=== PATIENT | male | born 1985 | race Caucasian/White ===

== ENCOUNTER 2020-08-10 15:13 | Emergency (ER) | payer MEDICAID, SELFPAY ==
[2020-08-10 16:21] VITALS: BP 132/76; PULSE 123; RESP 22; TEMP 36.9; O2SAT 94; BMI 31.5
--- NOTE | 2020-08-10 16:22 | ED.GENADULT ---
HPI - General Adult General Chief complaint: ETOH/Substance Use <Surekha Shabazz NP - Last Filed: 08/10/20 16:26> Stated complaint: detox <Surekha Shabazz NP - Last Filed: 08/10/20 16:26> Time Seen by Provider: 08/10/20 15:15 <Surekha Shabazz NP - Last Filed: 08/10/20 16:26> Source: RN notes reviewed <Ralf Mariscal MD - Last Filed: 08/10/20 17:52> Mode of arrival: ambulatory <Ralf Mariscal MD - Last Filed: 08/10/20 17:52> Limitations: other (Confused, agitated) <Ralf Mariscal MD - Last Filed: 08/10/20 17:52> History of Present Illness HPI narrative: 34-year-old male brought to the emergency department by his stepfather for evaluation of confusion and hallucination. According to triage note, the patient was evaluated 3-4 days prior at [facility] for acute alcohol intoxication, head trauma for evaluation to get into a detox bed . According to his mother, his alcohol level at that time was 412. He was medically cleared and discharged home . His mother took him home to live with her and care for the patient till a detox bed was available at [facility]. The patient was doing well until early this morning when he left the house and the mother believes he drank at least to handle of liquor. The patient is now confused and agitated. The family therefore brought into the emergency department for evaluation. His mother states that the patient drinks alcohol on a regular basis and has been admitted to multiple detox and has had some success at being sober in the past. He has been drinking since he was 12 years old. He has used heroin in the past and his overdose requiring Narcan to revive him. On examination, the patient is somnolent, he seems to be mumbling and talking to himself, he was oriented to person only but did not answer questions as to why he is here and what is going on with him. The patient was tachycardic and his O2 saturation did drop to 88% when he was somnolent therefore he was placed on oxygen via nasal cannula with improvement of his O2 saturations. <Ralf Mariscal MD - Last Filed: 08/10/20 17:52> Related Data Allergies/adverse reactions: Allergies Allergy/AdvReac Type Severity Reaction Status Date / Time No Known Allergies Allergy Verified 08/10/20 16:25 <Surekha Shabazz NP - Last Filed: 08/10/20 16:26> Review of Systems Review of Systems: Yes Unobtainable due to mental condition (Confused) <Ralf Mariscal MD - Last Filed: 08/10/20 17:52> Neurologic: Reports confusion <Ralf Mariscal MD - Last Filed: 08/10/20 17:52> Psychiatric: Psychiatric: Reports confusion <Ralf Mariscal MD - Last Filed: 08/10/20 17:52> [facility] Past Medical History [facility] Narrative: The patient has a history of hypertension, asthma and depression. Has a history of alcohol use disorder and has used heroin occasionally. He does smoke cigarettes on a regular basis. <Ralf Mariscal MD - Last Filed: 08/10/20 17:52> Social History Social History: Social History Advance Directives: No Advance Directives Information Provided: No <Surekha Shabazz NP - Last Filed: 08/10/20 16:26> Physical Exam Vital Signs: Vital Signs: Last Vital Signs Temp 98.5 F 08/10/20 16:21 Pulse 123 H 08/10/20 16:21 Resp 22 H 08/10/20 16:21 BP 132/76 08/10/20 16:21 Pulse Ox 94 08/10/20 16:21 Body Mass Index 31.5 <Surekha Shabazz NP - Last Filed: 08/10/20 16:26> Vital Signs: Last Vital Signs Temp 98.5 F 08/10/20 16:21 Pulse 123 H 08/10/20 16:21 Resp 22 H 08/10/20 16:21 BP 132/76 08/10/20 16:21 Pulse Ox 94 08/10/20 16:21 Body Mass Index 31.5 <Ralf Mariscal MD - Last Filed: 08/10/20 17:52> Const: General: well developed and confusion (Patient is mumbling, talking to himself, was able to tell me his name) <Ralf Mariscal MD - Last Filed: 08/10/20 17:52> Orientation/consciousness: oriented to person and confusion <Ralf Mariscal MD - Last Filed: 08/10/20 17:52> Limitations: altered mental status <Ralf Mariscal MD - Last Filed: 08/10/20 17:52> HENMT: Head: Yes normal to inspection, Yes normocephalic and Yes atraumatic <Ralf Mariscal MD - Last Filed: 08/10/20 17:52> Ears: external ears normal <MD Georgi Cantrell Last Filed: 08/10/20 17:52> General nose exam: Normal external nose present <MD Georgi Cantrell Last Filed: 08/10/20 17:52> Face and sinus: Yes other (Right periorbital ecchymosis) <MD Georgi Cantrell Last Filed: 08/10/20 17:52> Mouth: Normal oral and palatal mucosa present <MD Georgi Cantrell Last Filed: 08/10/20 17:52> Throat: Yes posterior oropharynx normal <MD Georgi Cantrell Last Filed: 08/10/20 17:52> Eyes: Periorbital: periorbital findings abnormal (Right periorbital ecchymosis) <Ralf Mariscal MD - Last Filed: 08/10/20 17:52> Eyelids: Yes eyelids normal <MD Georgi Cantrell Last Filed: 08/10/20 17:52> Conjunctivae: conjunctivae normal <MD Georgi Cantrell Last Filed: 08/10/20 17:52> Sclerae: sclerae normal <MD Georgi Cantrell Last Filed: 08/10/20 17:52> Corneas: corneas normal <MD Georgi Cantrell Last Filed: 08/10/20 17:52> Pupils: Pinpoint pupils bilaterally <MD Georgi Cantrell Last Filed: 08/10/20 17:52> Direct Ophthalmoscopy: normal light reflex <MD Georgi Cantrell Last Filed: 08/10/20 17:52> Neck: Neck: Yes full ROM, Yes no lymphadenopathy, Yes no meningeal signs, Yes trachea midline and Yes supple <Ralf Mariscal MD - Last Filed: 08/10/20 17:52> Chest: Chest palpation & inspection: normal inspection of the chest and normal palpation of entire chest wall <Ralf Mariscal MD - Last Filed: 08/10/20 17:52> Resp: Effort & Inspection: normal respiratory effort and able to speak in complete sentences <MD Georgi Cantrell Last Filed: 08/10/20 17:52> Auscultation: clear to auscultation bilaterally <MD Georgi Cantrell Last Filed: 08/10/20 17:52> Cardio: Rate: tachycardic <Ralf Mariscal MD - Last Filed: 08/10/20 17:52> Rhythm: regular rhythm <MD Georgi Cantrell Last Filed: 08/10/20 17:52> Heart sounds: S1 normal heart sound present, S2 normal heart sound present and no murmurs <MD Georgi Cantrell Last Filed: 08/10/20 17:52> GI: Inspection: Yes normal to inspection <MD Georgi Cantrell Last Filed: 08/10/20 17:52> Palpation (GI): Soft to palpation, nontender, no guarding, not rigid and No hepatosplenomegaly present <MD Georgi Cantrell Last Filed: 08/10/20 17:52> : General: Yes no CVA tenderness <MD Georgi Cantrell Last Filed: 08/10/20 17:52> Back/Spine/Pelvis: Back: no CVA tenderness <MD Georgi Cantrell Last Filed: 08/10/20 17:52> Cervical Spine: normal cervical lordosis <MD Georgi Cantrell Last Filed: 08/10/20 17:52> Thoracic/Lumbar Spine: thoracic and lumbar spine normal to inspection <Ralf Mariscal MD - Last Filed: 08/10/20 17:52> Skin: Lesions: no lesions <Ralf Mariscal MD - Last Filed: 08/10/20 17:52> Rashes: no rashes <Ralf Mariscal MD - Last Filed: 08/10/20 17:52> Wounds: no wounds <Ralf Mariscal MD - Last Filed: 08/10/20 17:52> Neuro: General: oriented to person, no meningeal signs and confusion <Ralf Mariscal MD - Last Filed: 08/10/20 17:52> Cranial nerves: Yes CN's II-XII intact bilaterally <Ralf Mariscal MD - Last Filed: 08/10/20 17:52> Speech: Other speech findings present (Neuro) (Mumbling speech, occasionally comprehensible) <Ralf Mariscal MD - Last Filed: 08/10/20 17:52> Motor exam (neuro): Other motor observations present (Moves all extremities symmetrically) <Ralf Mariscal MD - Last Filed: 08/10/20 17:52> Extrem: General: Yes normal to inspection and Yes full ROM <Ralf Mariscal MD - Last Filed: 08/10/20 17:52> Psych: Speech and movement: Other speech and movement exam findings present (Psych) (Mumbling, occasionally comprehensive) <Ralf Mariscal MD - Last Filed: 08/10/20 17:52> Course Course Course Narrative: 1620-This is a rapid medical exam. 34 yo male here altered, hallucinating brought in by step dad who tells me they that he has been detoxing from alcohol at their home. At [facility] 4 days ago for same and no detox bed available, sent home and trying to get a bed. Pt on arrival is altered, responding to internal stimuli, agitated. Will need direct bed. Called charge nurse. <Surekha Shabazz NP - Last Filed: 08/10/20 16:26> 1750: The patient is altered, has a history of alcohol substance abuse. He is tachycardic and hypoxic. I did order a workup on this patient including a CT scan of his head, portable chest x-ray, intranasal and IV Narcan. Patient also be treated with normal saline IV x2 L. <Ralf Mariscal MD - Last Filed: 08/10/20 17:52>
--- NOTE | 2020-08-10 16:57 | MHC.CARE ---
This development writer contact Prosper mcallister re: pt waiting for bed. systems coordinator reported that pt was recently placed on the waitlist, and is advised to call every 6-8 hours to remain on waitlist. There are several gentleman ahead of pt on waitlist, with estimated bed availability being 1-3 days. Pt will be updated when less intoxicated.
--- NOTE | 2020-08-10 17:16 | CT_ITS ---
EXAMINATION: CT HEAD WITHOUT CONTRAST CLINICAL INFORMATION: Trauma. Right periorbital ecchymosis. COMPARISON: None TECHNIQUE: Contiguous axial imaging was performed from the skull base to vertex without intravenous administration of contrast. Coronal and sagittal reformatted images are performed at the CT scanner This CT examination was performed using dose optimization techniques as appropriate, variously including the following: *Automated exposure control *Adjustment of mA and/or kV according to patient size (this includes techniques or standardized protocols for targeted exams where dose is matched to indication/reason for exam; i.e. extremities or head) *Use of iterative reconstruction technique DLP: 902 mGy-cm FINDINGS: There is a small scalp hematoma over the right frontal bone. There is no skull fracture. The orbital globes and retrobulbar structures are normal. There is no evidence of acute intracranial hemorrhage or territorial infarction. No abnormal mass effect or midline shift is seen. Thorpe to white matter differentiation is well preserved. No extra-axial fluid collections are identified. The ventricles are normal in size. There is no abnormal attenuation within the brain parenchyma. The paranasal sinuses are normally aerated. CT/CT head/brain wo con IMPRESSION: 1. No acute intracranial pathology. 2. Small scalp hematoma the right frontal bone. No skull fracture. The orbits and retrobulbar structures are unremarkable.
--- NOTE | 2020-08-10 17:20 | ED.GENADULT ---
HPI - General Adult General Chief complaint: ETOH/Substance Use Stated complaint: detox Time Seen by Provider: 08/10/20 15:15 Source: family and RN notes reviewed Mode of arrival: ambulatory Limitations: altered mental status (Confused, lethargic) History of Present Illness HPI narrative: Please see my previous note with the nurse practitioner , Poly on this person, this note was signed and I was unable to add an addendum. Related Data Allergies Allergy/AdvReac Type Severity Reaction Status Date / Time No Known Allergies Allergy Verified 08/10/20 16:25 PENDING SALE TO [facility] Social History Social History Advance Directives: No Advance Directives Information Provided: No Physical Exam Vital Signs: Vital Signs: Last Vital Signs Temp 98.1 F 08/10/20 21:38 Pulse 106 H 08/10/20 21:38 Resp 12 08/10/20 21:38 BP 126/78 08/10/20 21:38 Pulse Ox 92 08/10/20 21:38 Body Mass Index 31.5 Course Course Course Narrative: 2033: The patient is more awake and is able to eat and drink. He states the drink a 0.5 gal of vodka and may have taken Suboxone but he is not certain. I did discuss the patient's laboratory findings and CT scan findings with the patient's mother, Monie. Monie told me that the patient was staying at a intermediate house but was kicked out because he was drinking. They brought him home to try to help him get into detox but he has been combative and they will not take him back at this time since they do not believe this will help him get sober. I did discuss the patient's presentation with our instructional technology coach. 2225 : the patient is awake and appears to be sober. The patient's urine tox screen was positive for opiates and the patient did believe that he took Suboxone as well as using alcohol. The instructional technology coach was unable to find a detox bed for this patient. The patient will be discharged from the emergency department. Patient cannot return to his mother's home but the patient will be allowed to go to the waiting room to see if he can call for a ride or find another place to stay. Medical Decision Making Lab Data Result diagrams: 08/10/20 17:24 08/10/20 17:25 Labs: Lab Results 08/10/20 08/10/20 08/10/20 Range/Units 17:24 17:25 17:25 WBC 6.7 (4.8-10.8) X10*3/uL RBC 4.09 L (4.60-5.80) X10*6/uL Hgb 12.2 L (14.0-18.0) g/dl Hct 36.2 L (42-52) % MCV 88.5 (80-98) fL MCH 29.8 (27.0-33.0) pg MCHC 33.7 (31.0-36.0) g/dl RDW 13.6 (11.0-16.0) % Plt Count 194 (160-400) X10*3/uL MPV 9.7 (9.4-12.4) fL Immature Gran % (Auto) 0.0 (0.0-0.4) % Neut % (Auto) 28.5 L (45-73) % Lymph % (Auto) 56.6 H (20-40) % Fallon % (Auto) 12.3 H (2-11) % Eos % (Auto) 1.8 (0-4) % Baso % (Auto) 0.8 (0-2) % Lymph # (Auto) 3.8 (1.2-4.9) X10*3/uL Fallon # (Auto) 0.8 (0.1-1.2) X10*3/uL Eos # (Auto) 0.1 (0.0-0.4) X10*3/uL Baso # (Auto) 0.1 (0.0-0.2) X10*3/uL Abs Immat Gran (auto) 0.00 (0.00-0.03) X10*3/uL Absolute Neuts (auto) 1.9 L (2.0-8.3) X10*3/uL Absolute Nucleated RBC 0.000 (0.0-0.012) X10*3/uL Nucleated RBC % (auto) 0.0 (0.0-0.2) /100WBC Hold Blue Top SEE NOTE Sodium 143 (135-145) mmol/L Potassium 4.2 (3.3-5.1) mmol/l Chloride 102 (96-108) mmol/L Carbon Dioxide 30 H (22-29) mmol/L Anion Gap 15 (12-20) BUN 13 (9-16) mg/dL Creatinine 0.85 (0.5-1.4) mg/dL Estim Creat Clear Calc 142.2 Estimated GFR > 60 POC Glucose (60-115) mg/dL Random Glucose 105 (60-115) mg/dL Calcium 8.6 (8.4-10.2) mg/dL Magnesium 1.9 (1.6-2.6) mg/dL Total Bilirubin 0.2 (0.0-1.0) mg/dL Direct Bilirubin < 0.2 (0.0-0.5) mg/dL AST 94 H (5-37) U/L ALT 92 H (0-40) U/L Alkaline Phosphatase 70 (39-117) U/L Total Protein 6.8 (6.5-8.0) g/dL Albumin 4.5 (3.5-5.0) g/dL Salicylates < 5.0 L (15-30) mg/dL Urine Opiates Screen (Not Detect) Acetaminophen < 1 (<30) mcg/mL Ur Barbiturates Screen (Not Detect) Ur Phencyclidine Scrn (Not Detect) Ur Amphetamines Screen (Not Detect) U Benzodiazepines Scrn (Not Detect) Urine Cocaine Screen (Not Detect) U Marijuana (THC) Screen (Not Detect) Ethyl Alcohol mg/dL 08/10/20 08/10/20 08/10/20 Range/Units 17:25 17:33 21:41 WBC (4.8-10.8) X10*3/uL RBC (4.60-5.80) X10*6/uL Hgb (14.0-18.0) g/dl Hct (42-52) % MCV (80-98) fL MCH (27.0-33.0) pg MCHC (31.0-36.0) g/dl RDW (11.0-16.0) % Plt Count (160-400) X10*3/uL MPV (9.4-12.4) fL Immature Gran % (Auto) (0.0-0.4) % Neut % (Auto) (45-73) % Lymph % (Auto) (20-40) % Fallon % (Auto) (2-11) % Eos % (Auto) (0-4) % Baso % (Auto) (0-2) % Lymph # (Auto) (1.2-4.9) X10*3/uL Fallon # (Auto) (0.1-1.2) X10*3/uL Eos # (Auto) (0.0-0.4) X10*3/uL Baso # (Auto) (0.0-0.2) X10*3/uL Abs Immat Gran (auto) (0.00-0.03) X10*3/uL Absolute Neuts (auto) (2.0-8.3) X10*3/uL Absolute Nucleated RBC (0.0-0.012) X10*3/uL Nucleated RBC % (auto) (0.0-0.2) /100WBC Hold Blue Top Sodium (135-145) mmol/L Potassium (3.3-5.1) mmol/l Chloride (96-108) mmol/L Carbon Dioxide (22-29) mmol/L Anion Gap (12-20) BUN (9-16) mg/dL Creatinine (0.5-1.4) mg/dL Estim Creat Clear Calc Estimated GFR POC Glucose 92 (60-115) mg/dL Random Glucose (60-115) mg/dL Calcium (8.4-10.2) mg/dL Magnesium (1.6-2.6) mg/dL Total Bilirubin (0.0-1.0) mg/dL Direct Bilirubin (0.0-0.5) mg/dL AST (5-37) U/L ALT (0-40) U/L Alkaline Phosphatase (39-117) U/L Total Protein (6.5-8.0) g/dL Albumin (3.5-5.0) g/dL Salicylates (15-30) mg/dL Urine Opiates Screen POSITIVE H (Not Detect) Acetaminophen (<30) mcg/mL Ur Barbiturates Screen Not Detected (Not Detect) Ur Phencyclidine Scrn Not Detected (Not Detect) Ur Amphetamines Screen Not Detected (Not Detect) U Benzodiazepines Scrn Not Detected (Not Detect) Urine Cocaine Screen Not Detected (Not Detect) U Marijuana (THC) Screen Not Detected (Not Detect) Ethyl Alcohol 293 mg/dL Discharge Plan Discharge Clinical Impression: Opiate abuse, episodic Alcoholic intoxication Qualifiers: Complication of substance-induced condition: with unspecified complication Qualified Code(s): F10.929 - Alcohol use, unspecified with intoxication, unspecified Closed head injury Qualifiers: Encounter type: subsequent encounter Qualified Code(s): S09.90XD - Unspecified injury of head, subsequent encounter Patient Disposition: Home, Self-Care Instructions: Abuse of Alcohol (ED), Opioid Use Disorder (ED) Additional Instructions: Your alcohol level was extremely high. Your drug screen was positive for opiates. The combination of drinking alcohol using opiates can lead to . You need to get into a detox program to try to restart your recovery. Follow-up with your doctor in 2 days. Please return to the emergency department if your symptoms get worse or if you develop any symptoms that are concerning to you.
[2020-08-10] MEDS: Naloxone HCl Nasal 4 MG SPRAY NOSTRILALT (17:28)
[2020-08-10 17:29] LABS: MANUAL DIFF FLAG NO
[2020-08-10 17:31] LABS: Basophils Absolute Auto 0.1 X10*3/uL (0.0-0.2); Basophils Percent Auto 0.8 % (0-2); Eosinophils Absolute Auto 0.1 X10*3/uL (0.0-0.4); Eosinophils Percent Auto 1.8 % (0-4); Hematocrit 36.2 % (42-52); Hemoglobin 12.2 g/dl (14.0-18.0); Lymphocytes Absolute Auto 3.8 X10*3/uL (1.2-4.9); Lymphocytes Percent Auto 56.6 % (20-40); Mean Corpuscular HGB Conc 33.7 g/dl (31.0-36.0); Mean Corpuscular Hemoglobin 29.8 pg (27.0-33.0); Mean Corpuscular Volume 88.5 fL (80-98); Mean Platelet Volume 9.7 fL (9.4-12.4); Monocytes Absolute Auto 0.8 X10*3/uL (0.1-1.2); Monocytes Percent Auto 12.3 % (2-11); Neutrophils Absolute Auto 1.9 X10*3/uL (2.0-8.3); Neutrophils Percent Auto 28.5 % (45-73); Platelet Count 194 X10*3/uL (160-400); Red Blood Count 4.09 X10*6/uL (4.60-5.80); Red Cell Distribution Width 13.6 % (11.0-16.0); White Blood Count 6.7 X10*3/uL (4.8-10.8)
[2020-08-10] MEDS: 0.9 % Sodium Chloride 1,000 ML 999 ML IV ×2 (17:31→20:05)
[2020-08-10 17:38] LABS: Glucose, Whole Blood 92 mg/dL (60-115)
[2020-08-10 17:39] VITALS: BP 136/89; PULSE 117; RESP 8; TEMP 36.8; O2SAT 93
--- NOTE | 2020-08-10 17:50 | XR_ITS ---
EXAMINATION: XR CHEST CLINICAL INFORMATION: Hypoxia. Rule out pneumonia. COMPARISON: None TECHNIQUE: Frontal view of the chest was obtained. FINDINGS: Cardiac silhouette appears enlarged. Low lung volumes with asymmetric elevation of the right hemidiaphragm. Subtle opacity of the lateral left lung base is nonspecific. There is no gross lobar consolidation. No pleural effusion or pneumothorax. XR/XR chest 1V IMPRESSION: Low lung volumes with nonspecific opacity of the bilateral left lung base. This may represent attenuation artifact from overlying soft tissue, a small amount of pleural fluid or possibly a developing infiltrate. Clinical correlation recommended. Further evaluation can be obtained with dedicated PA and lateral radiographs with improved inspiration if clinically indicated.
[2020-08-10 17:58] LABS: Ethanol 293 mg/dL
[2020-08-10 18:05] LABS: Acetaminophen LAB < 1 mcg/mL (<30)
[2020-08-10] MEDS: Naloxone HCl 2 MG/2 ML SYRINGE 1 MG IVPUSH (18:06)
--- NOTE | 2020-08-10 18:09 | PC.NURSE ---
PT EXPERIENCING EPISODES OF APNEA AND DESAT INTO THE MID 80'S HE IS AROUSABLE BUT NO ABLE TO SPEECH CLEARLY OR FOLLOW COMMANDS. HE WAS MEDICATED WITH NARCAN ORDERED/CHARTED WITH NO EFFECT
[2020-08-10 18:10] LABS: Alanine Aminotransferase 92 U/L (0-40); Albumin Level 4.5 g/dL (3.5-5.0); Alkaline Phosphatase 70 U/L (39-117); Anion Gap 15 (12-20); Aspartate Amino Transferase 94 U/L (5-37); Bilirubin Direct < 0.2 mg/dL (0.0-0.5); Bilirubin Total 0.2 mg/dL (0.0-1.0); Blood Urea Nitrogen 13 mg/dL (9-16); Calcium 8.6 mg/dL (8.4-10.2); Carbon Dioxide 30 mmol/L (22-29); Chloride 102 mmol/L (96-108); Creatinine Clr Calc Pharmacy 142.2; Estimated Glomerular Filt Rate > 60; Glucose Random 105 mg/dL (60-115); Magnesium 1.9 mg/dL (1.6-2.6); Potassium 4.2 mmol/l (3.3-5.1); Salicylate < 5.0 mg/dL (15-30); Sodium 143 mmol/L (135-145); Total Protein 6.8 g/dL (6.5-8.0)
[2020-08-10 18:11] VITALS: BP 133/97; PULSE 118; RESP 10; O2SAT 97
[2020-08-10 19:33] VITALS: BP 132/88; PULSE 105; RESP 12; TEMP 36.6; O2SAT 95
[2020-08-10 20:00] VITALS: BP 145/85; PULSE 109; RESP 12; TEMP 36.6; O2SAT 95
--- NOTE | 2020-08-10 20:50 | MHC.RECOVSUP ---
Meet with patient.Patient still wanted to go to detox. Found a bed for patient at [facility] and after patient doing a intake. Was told that patient could not come to [facility] or [place] until the Aug. Tried to call [facility]. No Beds.. Patient is still on waiting list. was able to supply patient with Resources to recovery.
[2020-08-10 21:38] VITALS: BP 126/78; PULSE 106; RESP 12; TEMP 36.7; O2SAT 92
[2020-08-10 22:15] LABS: Amphetamine Screen Urine Not Detected (Not Detect); Barbiturates, Urine Not Detected (Not Detect); Benzodiazepines Screen Urine Not Detected (Not Detect); Cannabinoid Screen Urine Not Detected (Not Detect); Cocaine Screen Urine Not Detected (Not Detect); Opiate Screen Urine POSITIVE (Not Detect); Phencyclidine Screen Urine Not Detected (Not Detect)
== END 2020-08-10 22:56 | disposition home or self-care (01) ==
PROVIDERS: Nurse Practitioner Family; Emergency Provider Emergency Medicine Emergency Medical Services
DX: F11.10 Opioid abuse, uncomplicated (principal); F10.120 Alcohol abuse with intoxication, uncomplicated; Y90.8 Blood alcohol level of 240 mg/100 ml or more; S09.90XA Unspecified injury of head, initial encounter; W19.XXXA Unspecified fall, initial encounter; Y93.9 Activity, unspecified; Y92.9 Unspecified place or not applicable; Y99.9 Unspecified external cause status
CPT/HCPCS: 36415; 70450; 71045; 80048; 80076; 80307; 80320; 82947; 83735; 85025; 96361; 96374; 99285; G0480

== ENCOUNTER 2020-08-16 10:58 | Emergency (ER) | payer MEDICAID, SELFPAY ==
[2020-08-16] VITALS (8 sets, daily range): BP systolic 143–152; BP diastolic 65–89; PULSE 109–130; RESP 20–24; TEMP 36.4–36.9; O2SAT 93–95; BMI 31.3
--- NOTE | 2020-08-16 11:38 | XR_ITS ---
EXAMINATION: XR RIBS, RIGHT CLINICAL INFORMATION: Status post fall. Rib pain. COMPARISON: None TECHNIQUE: 3 views of the right ribs were obtained. Chest one view. FINDINGS: Chest: Lungs are moderately expanded but clear of acute process. The heart size and pulmonary vascularity is normal. Right RIBS: Multiple views of right ribs reveal frequent fractures involving right lateral seventh, eighth and ninth ribs XR/XR ribs RT min 3V w CXR1V IMPRESSION: Unremarkable chest exam. Minimally displaced right lateral seventh rib fracture. The eighth and ninth rib fractures could be old as there is periosteal thickening
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
[2020-08-16 12:14] LABS: Ethanol 383 mg/dL
--- NOTE | 2020-08-16 12:27 | MHC.RECOVSUP ---
? Reason for consult:Continuity of care o Current location: o Identified substance use concern: ETOH - Seeking ATS (detox) - Support ? Intervention: o ATS bed search started/completed/in process o Community resources provided o ? Plan: o Bed search in progress to o Follow up tomorrow o Patient to follow up with [facility] after discharge ? Additional information: Waiting for drug screen, Covid test. patient has a bed ready at [facility]
[2020-08-16 13:11] LABS: COVID-19 Test Negative (Negative); IDNOW Serial# 9DD0AD1C
[2020-08-16 13:37] LABS: Amphetamine Screen Urine Not Detected (Not Detect); Barbiturates, Urine Not Detected (Not Detect); Benzodiazepines Screen Urine Not Detected (Not Detect); Cannabinoid Screen Urine Not Detected (Not Detect); Cocaine Screen Urine Not Detected (Not Detect); Opiate Screen Urine Not Detected (Not Detect); Phencyclidine Screen Urine Not Detected (Not Detect)
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
--- NOTE | 2020-08-16 15:19 | PC.NURSE ---
Pt transferred from main ED, and began to vomit. Pt tremulous, reports rib pain.
--- NOTE | 2020-08-16 15:21 | PC.NURSE ---
pt transferred to behavioral health pod. report given nurse to nurse Lubna NUNEZ.
[2020-08-16] MEDS: LORazepam 1 MG TABLET 2 MG PO ×3 (15:31→17:51)
[2020-08-16] MEDS: Ketorolac Tromethamine 15 MG/ML VIAL IM ×2 (15:42→17:15)
--- NOTE | 2020-08-16 15:47 | PC.NURSE ---
Pt medicated for pain, as ordered. Currently resting in bed w/ occasional dry heave.
--- NOTE | 2020-08-16 16:00 | PC.NURSE ---
Called [facility], lavinia Reveles RN, described pt's current presentation. RN requesting to speak ainsley/ at [place] before accepting pt.
--- NOTE | 2020-08-16 16:20 | PC.NURSE ---
Pt reporting some effect from the toredol given, no further vomiting at this time.
--- NOTE | 2020-08-16 16:41 | PC.NURSE ---
Tomi reported to Aj Bob- pt medicated as ordered. No further perspiration noted, no further vomiting at this time. [place] requesting that pt be stabilized prior to transfer- requesting a call quarter backer to [phone] after second dose of ativan. Aj bob aware.
--- NOTE | 2020-08-16 17:21 | PC.NURSE ---
Pt reporting continued rib pain- provider aware, pt medicated for pain. CARE team [place]ft [place] [phone] [facility] called, report updated, are accepting patient now. Pt drinking fluids, tolerating PO, no further vomiting.
--- NOTE | 2020-08-16 17:26 | PC.NURSE ---
Pt resumed dry heaving. Provider notified.
--- NOTE | 2020-08-16 17:49 | PC.NURSE ---
Situation reviewed w/ Dr Mariscal. Pt preparing to leave. lyft arranged by care team. pt to be medicated prior to depar
--- NOTE | 2020-08-16 17:55 | PC.NURSE ---
Report updated to Anushka NUNEZ at [employer]. pt given discharge instructions, verbalized understanding. pt gait steady, escorted to waiting room by care team. Pt to be transported to [facility] w/ jolene team.
--- NOTE | 2020-08-16 18:07 | MHC.CARE ---
CARE team ordered lyft for transport to [facility], walked pt to main lobby to meet double bottom driver.
== END 2020-08-16 18:02 ==
PROVIDERS: Physician Assistant; Emergency Provider Emergency Medicine Emergency Medical Services
DX: F10.220 Alcohol dependence with intoxication, uncomplicated (principal); Y90.8 Blood alcohol level of 240 mg/100 ml or more; S22.41XA Multiple fractures of ribs, right side, initial encounter for closed fracture; X58.XXXA Exposure to other specified factors, initial encounter; Z20.822 Contact with and (suspected) exposure to COVID-19; Y93.9 Activity, unspecified; Y92.9 Unspecified place or not applicable; Y99.9 Unspecified external cause status; F17.200 Nicotine dependence, unspecified, uncomplicated
CPT/HCPCS: 36415; 71101; 80307; 80320; 87635; 96372; 99285; J1885

== ENCOUNTER 2020-08-26 14:12 | Emergency (ER) | payer MEDICAID, SELFPAY ==
[2020-08-26 14:56] VITALS: BP 155/99; PULSE 112; RESP 18; TEMP 37; O2SAT 94; BMI 31.3
--- NOTE | 2020-08-26 15:02 | ED.ALCOHOL ---
HPI - Alcohol General Chief Complaint: Psychiatric Symptoms Stated Complaint: PSYCH EVAL,ETOH AND DRUGS ON BOARD Time Seen by Provider: 08/26/20 17:01 Source: patient and EMS Mode of arrival: EMS History of Present Illness HPI narrative: Patient presents to ED for alcohol intoxication, drug use, suicidal ideation. Patient admits to mild suicidal ideation, but with no plan. Patient admits to drinking alcohol and doing cocaine. Patient wants to go to detox. Patient has a possible detox bed for tomorrow back to be cleared medically and by [facility]. Related Data Home Medications Medication Instructions Recorded Confirmed budesonide-formoterol [Symbicort] 2 puff INHALATION BID 08/26/20 08/26/20 gabapentin 600 mg PO TID 08/26/20 08/26/20 omeprazole 20 mg PO DAILY 08/26/20 08/26/20 Allergies Allergy/AdvReac Type Severity Reaction Status Date / Time No Known Allergies Allergy Verified 08/10/20 16:25 Review of Systems Review of Systems: Yes all other systems are reviewed and are negative Constitutional: Constitutional: Reports as per HPI and Reports no additional constitutional complaints Eyes: Eyes: Reports as per HPI and Reports no additional eye complaints ENT: Reports system reviewed and no additional complaints, except as documented and Reports as per HPI Cardiovascular: Cardiovascular: Reports as per HPI and Reports no additional cardiovascular complaints Respiratory: Respiratory: Reports as per HPI and Reports no additional respiratory complaints Gastrointestinal: Gastrointestinal: Reports as per HPI and Reports no additional gastrointestinal complaints Genitourinary: Genitourinary: Reports no additional male genitourinary complaints and Reports as per HPI Musculoskeletal: Musculoskeletal: Reports no additional musculoskeletal complaints and Reports as per HPI Neurologic: Reports system reviewed and no additional complaints, except as documented and Reports as per HPI Psychiatric: Psychiatric: Reports no additional psychiatric complaints and Reports as per HPI PMF Past Medical History Medical History (Updated 08/17/20 @ 00:00 by Background Daemon) Asthma Substance abuse Social History Social History Alcohol intake: current Alcohol intake frequency: 3 or more drinks per day Alcohol type: hard liquor Smoking Status: Current every day smoker Use of substances other than those prescribed or required for medical reasons: Yes Substance Use Type: Crack/Cocaine and Heroin Substance Use Frequency: Recent Binge Last Used Substance: Days (ago) Advance Directives: No Advance Directives Information Provided: No Physical Exam Vital Signs: Vital Signs: Last Vital Signs Temp 98.5 F 08/26/20 16:18 Pulse 100 08/26/20 16:18 Resp 20 08/26/20 16:18 BP 138/67 08/26/20 16:18 Pulse Ox 95 08/26/20 16:18 Body Mass Index 31.3 Const: Other: Alcohol on breath General: cooperative, healthy appearing, comfortable, no acute distress and well developed Orientation/consciousness: patient oriented x3 HENMT: Head: Yes normal to inspection, Yes No palpable skull fracture present, Yes normocephalic, Yes atraumatic and No abrasion Eyes: General: appearance normal, both eyes and all related structures Neck: Neck: Yes normal visual inspection, Yes full ROM, Yes no lymphadenopathy, Yes no meningeal signs, Yes trachea midline, Yes supple and No tender Chest: Chest palpation & inspection: normal inspection of the chest and normal palpation of entire chest wall Resp: Effort & Inspection: normal respiratory effort and able to speak in complete sentences Auscultation: clear to auscultation bilaterally Cardio: Jugular venous distension: no JVD Heart sounds: S1 normal heart sound present and S2 normal heart sound present GI: Inspection: Yes normal to inspection and No abdominal wall ecchymosis Palpation (GI): Soft to palpation, not firm, nontender, no guarding and not rigid : General: No CVA tenderness and Yes no CVA tenderness Back/Spine/Pelvis: Back: no CVA tenderness, No CVA tenderness and No back tenderness Skin: General skin exam: no rashes or lesions noted and elasticity normal Neuro: Other: Alcohol on breath General: patient oriented x3, no meningeal signs and CN's II-XI intact bilaterally Cranial nerves: Yes CN's II-XII intact bilaterally Extrem: General: Yes normal to inspection and Yes full ROM Psych: Appearance: grossly normal, well kempt and not disheveled Course Course Course Narrative: Patient will have lab work, and detox steroid. Patient will be evaluated by radiation when medically cleared. Reevaluation(s) Reevaluation #1: Patient awaiting [facility] evaluation. Patient labs are baseline. Alcohol level is elevated. Signed out to [facility] Brice. Time: 21:42 MDM - Alcohol MDM Narrative Medical decision making narrative: Alcohol intoxication Lab Data Result diagrams: 08/26/20 15:14 08/26/20 15:14 Labs: Lab Results 08/26/20 08/26/20 08/26/20 Range/Units 15:14 15:14 15:14 WBC 6.5 (4.8-10.8) X10*3/uL RBC 4.86 (4.60-5.80) X10*6/uL Hgb 14.5 (14.0-18.0) g/dl Hct 42.8 (42-52) % MCV 88.1 (80-98) fL MCH 29.8 (27.0-33.0) pg MCHC 33.9 (31.0-36.0) g/dl RDW 15.3 (11.0-16.0) % Plt Count 453 H D (160-400) X10*3/uL MPV 8.9 L (9.4-12.4) fL Immature Gran % (Auto) 0.2 (0.0-0.4) % Neut % (Auto) 54.6 (45-73) % Lymph % (Auto) 36.8 (20-40) % [place] % (Auto) 6.9 (2-11) % Eos % (Auto) 0.0 (0-4) % Baso % (Auto) 1.5 (0-2) % Lymph # (Auto) 2.4 (1.2-4.9) X10*3/uL [place] # (Auto) 0.5 (0.1-1.2) X10*3/uL Eos # (Auto) 0.0 (0.0-0.4) X10*3/uL Baso # (Auto) 0.1 (0.0-0.2) X10*3/uL Abs Immat Gran (auto) 0.01 (0.00-0.03) X10*3/uL Absolute Neuts (auto) 3.5 (2.0-8.3) X10*3/uL Absolute Nucleated RBC 0.000 (0.0-0.012) X10*3/uL Nucleated RBC % (auto) 0.0 (0.0-0.2) /100WBC Sodium 144 (135-145) mmol/L Potassium 4.4 (3.3-5.1) mmol/L Chloride 99 (96-108) mmol/L Carbon Dioxide 25 (22-29) mmol/L Anion Gap 24 H (12-20) BUN 14 (9-16) mg/dL Creatinine 0.84 (0.5-1.4) mg/dL Estim Creat Clear Calc 139.0 Estimated GFR > 60 Random Glucose 91 (60-115) mg/dL Calcium 8.3 L (8.4-10.2) mg/dL Total Bilirubin < 0.2 (0.0-1.0) mg/dL Direct Bilirubin < 0.2 (0.0-0.5) mg/dL AST 51 H (5-37) U/L ALT 53 H (0-40) U/L Alkaline Phosphatase 166 H D (39-117) U/L Total Protein 7.6 (6.5-8.0) g/dL Albumin 4.6 (3.5-5.0) g/dL Urine Opiates Screen (Not Detect) Ur Barbiturates Screen (Not Detect) Ur Phencyclidine Scrn (Not Detect) Ur Amphetamines Screen (Not Detect) U Benzodiazepines Scrn (Not Detect) Urine Cocaine Screen (Not Detect) U Marijuana (THC) Screen (Not Detect) Ethyl Alcohol 462 H* mg/dL 08/26/20 Range/Units 15:14 WBC (4.8-10.8) X10*3/uL RBC (4.60-5.80) X10*6/uL Hgb (14.0-18.0) g/dl Hct (42-52) % MCV (80-98) fL MCH (27.0-33.0) pg MCHC (31.0-36.0) g/dl RDW (11.0-16.0) % Plt Count (160-400) X10*3/uL MPV (9.4-12.4) fL Immature Gran % (Auto) (0.0-0.4) % Neut % (Auto) (45-73) % Lymph % (Auto) (20-40) % [place] % (Auto) (2-11) % Eos % (Auto) (0-4) % Baso % (Auto) (0-2) % Lymph # (Auto) (1.2-4.9) X10*3/uL [place] # (Auto) (0.1-1.2) X10*3/uL Eos # (Auto) (0.0-0.4) X10*3/uL Baso # (Auto) (0.0-0.2) X10*3/uL Abs Immat Gran (auto) (0.00-0.03) X10*3/uL Absolute Neuts (auto) (2.0-8.3) X10*3/uL Absolute Nucleated RBC (0.0-0.012) X10*3/uL Nucleated RBC % (auto) (0.0-0.2) /100WBC Sodium (135-145) mmol/L Potassium (3.3-5.1) mmol/L Chloride (96-108) mmol/L Carbon Dioxide (22-29) mmol/L Anion Gap (12-20) BUN (9-16) mg/dL Creatinine (0.5-1.4) mg/dL Estim Creat Clear Calc Estimated GFR Random Glucose (60-115) mg/dL Calcium (8.4-10.2) mg/dL Total Bilirubin (0.0-1.0) mg/dL Direct Bilirubin (0.0-0.5) mg/dL AST (5-37) U/L ALT (0-40) U/L Alkaline Phosphatase (39-117) U/L Total Protein (6.5-8.0) g/dL Albumin (3.5-5.0) g/dL Urine Opiates Screen Not Detected (Not Detect) Ur Barbiturates Screen Not Detected (Not Detect) Ur Phencyclidine Scrn Not Detected (Not Detect) Ur Amphetamines Screen Not Detected (Not Detect) U Benzodiazepines Scrn POSITIVE H (Not Detect) Urine Cocaine Screen Not Detected (Not Detect) U Marijuana (THC) Screen Not Detected (Not Detect) Ethyl Alcohol mg/dL Discharge Plan Discharge Prescriptions: No Action gabapentin 600 mg Tablet 600 mg PO TID RF: 0 omeprazole 20 mg Capsule,Delayed Release(Dr/Ec) 20 mg PO DAILY RF: 0 budesonide-formoterol [Symbicort] 160-4.5 mcg/actuation Hfa Aerosol Inhaler 2 puff INHALATION BID RF: 0
[2020-08-26 15:26] LABS: MANUAL DIFF FLAG NO
[2020-08-26 15:29] LABS: Basophils Absolute Auto 0.1 X10*3/uL (0.0-0.2); Basophils Percent Auto 1.5 % (0-2); Hematocrit 42.8 % (42-52); Hemoglobin 14.5 g/dl (14.0-18.0); Imm Gran Abs Auto 0.01 X10*3/uL (0.00-0.03); Imm Gran Pct Auto 0.2 % (0.0-0.4); Lymphocytes Absolute Auto 2.4 X10*3/uL (1.2-4.9); Lymphocytes Percent Auto 36.8 % (20-40); Mean Corpuscular HGB Conc 33.9 g/dl (31.0-36.0); Mean Corpuscular Hemoglobin 29.8 pg (27.0-33.0); Mean Corpuscular Volume 88.1 fL (80-98); Mean Platelet Volume 8.9 fL (9.4-12.4); Monocytes Absolute Auto 0.5 X10*3/uL (0.1-1.2); Monocytes Percent Auto 6.9 % (2-11); Neutrophils Absolute Auto 3.5 X10*3/uL (2.0-8.3); Neutrophils Percent Auto 54.6 % (45-73); Platelet Count 453 X10*3/uL (160-400); Red Blood Count 4.86 X10*6/uL (4.60-5.80); Red Cell Distribution Width 15.3 % (11.0-16.0); White Blood Count 6.5 X10*3/uL (4.8-10.8)
[2020-08-26 15:46] LABS: Ethanol 462 mg/dL
[2020-08-26 15:55] LABS: Alanine Aminotransferase 53 U/L (0-40); Albumin Level 4.6 g/dL (3.5-5.0); Alkaline Phosphatase 166 U/L (39-117); Anion Gap 24 (12-20); Aspartate Amino Transferase 51 U/L (5-37); Bilirubin Direct < 0.2 mg/dL (0.0-0.5); Bilirubin Total < 0.2 mg/dL (0.0-1.0); Blood Urea Nitrogen 14 mg/dL (9-16); Calcium 8.3 mg/dL (8.4-10.2); Carbon Dioxide 25 mmol/L (22-29); Chloride 99 mmol/L (96-108); Estimated Glomerular Filt Rate > 60; Glucose Random 91 mg/dL (60-115); Potassium 4.4 mmol/L (3.3-5.1); Sodium 144 mmol/L (135-145); Total Protein 7.6 g/dL (6.5-8.0)
[2020-08-26 16:05] LABS: Amphetamine Screen Urine Not Detected (Not Detect); Barbiturates, Urine Not Detected (Not Detect); Benzodiazepines Screen Urine POSITIVE (Not Detect); Cannabinoid Screen Urine Not Detected (Not Detect); Cocaine Screen Urine Not Detected (Not Detect); Opiate Screen Urine Not Detected (Not Detect); Phencyclidine Screen Urine Not Detected (Not Detect)
[2020-08-26 16:18] VITALS: BP 138/67; PULSE 100; RESP 20; TEMP 36.9; O2SAT 95
[2020-08-26] MEDS: LORazepam 1 MG TABLET 2 MG PO (17:06)
--- NOTE | 2020-08-26 17:09 | PC.NURSE ---
PT REPORTS FEELING SYMPTOMS OF ALCOHOL WITHDRAWL, TREMULOUS AND NAUSEA. MEDICATED WITH ATIVAN 2MG. WILL CONTINUE TO MONITOR
[2020-08-26] MEDS: Ibuprofen 600 MG TABLET PO (20:41)
[2020-08-26] MEDS: Gabapentin 600 MG TABLET PO (22:02)
[2020-08-26 22:40] VITALS: BP 138/67; PULSE 107; RESP 18; TEMP 36.9; O2SAT 97
[2020-08-27] MEDS: LORazepam 1 MG TABLET 2 MG PO ×2 (05:02→13:01)
[2020-08-27] MEDS: Omeprazole 20 MG CAPSULE.DR PO (08:38)
[2020-08-27] MEDS: Gabapentin 600 MG TABLET PO ×2 (08:38→15:16)
[2020-08-27] MEDS: Fluticasone/Vilanterol 200/25 BLST.W.DEV 1 PUFF INHALE (08:38)
--- NOTE | 2020-08-27 10:31 | MHC.CARE ---
CARE Team spoke with family member Jerome Dhaliwal [phone], and they are getting a section 35 for patient. Awaiting for family to be able to go to court and have patient sectioned 35.
[2020-08-27 11:16] VITALS: BP 144/84; PULSE 91; TEMP 36.3; O2SAT 97
--- NOTE | 2020-08-27 12:49 | PC.NURSE ---
PT C/O WITHDRAWAL SX'S. ANJUM,LABOR RELATIONS SPECIALIST OVER TO EVALUATE PT
== END 2020-08-27 15:34 | disposition home or self-care (01) ==
PROVIDERS: Physician Assistant; Emergency Provider Emergency Medicine
DX: F10.129 Alcohol abuse with intoxication, unspecified (principal); R45.851 Suicidal ideations; Y90.8 Blood alcohol level of 240 mg/100 ml or more; F11.10 Opioid abuse, uncomplicated; F14.10 Cocaine abuse, uncomplicated; F17.200 Nicotine dependence, unspecified, uncomplicated; Z71.6 Tobacco abuse counseling; Z71.51 Drug abuse counseling and surveillance of drug abuser
CPT/HCPCS: 36415; 80053; 80076; 80307; 80320; 82248; 85025; 99285

== ENCOUNTER 2021-05-09 16:21 | Emergency (ER) | payer MEDICAID, SELFPAY ==
--- NOTE | 2021-05-09 | ECG_ITS ---
Test Reason : MED CLEARANCE Blood Pressure : / mmHG Vent. Rate : 097 BPM Atrial Rate : 097 BPM P-R Int : 156 ms QRS Dur : 086 ms QT Int : 374 ms P-R-T Axes : 067 017 034 degrees QTc Int : 474 ms Normal sinus rhythm Normal ECG No previous ECGs available Referred By: Babs Montejo Electronically Signed By:CONNOR DAVID MD
--- NOTE | 2021-05-09 16:30 | ED_ITS ---
HPI - General Adult General Chief complaint: ETOH/Substance Use <Surekha Shabazz NP - Last Filed: 05/09/21 16:35> Stated complaint: ingested hand senatizer <Surekha Shabazz NP - Last Filed: 05/09/21 16:35> Time Seen by Provider: 05/09/21 16:30 <Surekha Shabazz NP - Last Filed: 05/09/21 16:35> Source: patient <Surekha Shabazz NP - Last Filed: 05/09/21 16:35> Mode of arrival: ambulatory <Surekha Shabazz NP - Last Filed: 05/09/21 16:35> Limitations: no limitations <Surekha Shabazz NP - Last Filed: 05/09/21 16:35> History of Present Illness HPI narrative: 35 yo male with a past medical history of polysubstance here after drinking one gallon hand [employer] over the last four days to try to get drunk. Got out [place] [facility] [place] ago after being there for 50 days. Has been at [facility] since. Has been on suboxone [place] in [place] but since being in [facility] has not showed to his appt to continue his suboxone. Was on 8/2 BID. No SI/HI <Surekha Shabazz NP - Last Filed: 05/09/21 16:35> Related Data Home medications: Home Medications Medication Instructions Recorded Confirmed buprenorphine 8 mg-naloxone 2 mg 1 strip SUBLINGUAL BID 05/09/21 05/09/21 sublingual film (Suboxone) bupropion HCl 200 mg tablet,12 hr 1 tab PO BID 05/09/21 05/09/21 sustained-release hydroxyzine HCl 25 mg tablet 1 - 2 tab PO BID PRN 05/09/21 05/09/21 <Surekha Shabazz NP - Last Filed: 05/09/21 16:35> Allergies/adverse reactions: Allergies Allergy/AdvReac Type Severity Reaction Status Date / Time No Known Allergies Allergy Verified 08/10/20 16:25 <Surekha Shabazz NP - Last Filed: 05/09/21 16:35> PMFSH Past Medical History Medical History: Medical History Asthma Substance abuse <Surekha Shabazz NP - Last Filed: 05/09/21 16:35> Social History Social History: Social History Alcohol intake: current Alcohol intake frequency: 3 or more drinks per day Alcohol type: hard liquor Substance Use Type: Crack/Cocaine and Heroin Advance Directives: No Advance Directives Information Provided: Yes <Surekha Shabazz NP - Last Filed: 05/09/21 16:35> Physical Exam Vital Signs: Vital Signs: Last Vital Signs Temp 98.0 F 05/09/21 23:55 Pulse 96 05/09/21 23:55 Resp 17 05/09/21 23:55 BP 148/84 H 05/09/21 23:55 Pulse Ox 97 05/09/21 23:55 Body Mass Index 32.5 <Surekha Shabazz NP - Last Filed: 05/09/21 16:35> Vital Signs: Last Vital Signs Temp 98.0 F 05/09/21 23:55 Pulse 96 05/09/21 23:55 Resp 17 05/09/21 23:55 BP 148/84 H 05/09/21 23:55 Pulse Ox 97 05/09/21 23:55 Body Mass Index 32.5 <Grace Painter MD - Last Filed: 05/10/21 07:45> Medical Decision Making Lab Data Result diagrams: : 05/09/21 17:06 05/09/21 17:06 <Surekha Shabazz NP - Last Filed: 05/09/21 16:35> Labs: Lab Results 05/09/21 05/09/21 05/09/21 Range/Units 16:50 16:50 16:50 WBC (4.8-10.8) X10*3/uL RBC (4.60-5.80) X10*6/uL Hgb (14.0-18.0) g/dl Hct (42-52) % MCV (80-98) fL MCH (27.0-33.0) pg MCHC (31.0-36.0) g/dl RDW (11.0-16.0) % Plt Count (160-400) X10*3/uL MPV (9.4-12.4) fL Immature Gran % (Auto) (0.0-0.4) % Neut % (Auto) (45-73) % Lymph % (Auto) (20-40) % [place] % (Auto) (2-11) % Eos % (Auto) (0-4) % Baso % (Auto) (0-2) % Lymph # (Auto) (1.2-4.9) X10*3/uL [place] # (Auto) (0.1-1.2) X10*3/uL Eos # (Auto) (0.0-0.4) X10*3/uL Baso # (Auto) (0.0-0.2) X10*3/uL Abs Immat Gran (auto) (0.00-0.03) X10*3/uL Absolute Neuts (auto) (2.0-8.3) X10*3/uL Absolute Nucleated RBC (0.0-0.012) X10*3/uL Nucleated RBC % (auto) (0.0-0.2) /100WBC Sodium (135-145) mmol/L Potassium (3.3-5.1) mmol/L Chloride (96-108) mmol/L Carbon Dioxide (22-29) mmol/L Anion Gap (12-20) BUN (9-16) mg/dL Creatinine (0.5-1.4) mg/dL Estim Creat Clear Calc Estimated GFR Random Glucose (60-115) mg/dL Calcium (8.4-10.2) mg/dL Total Bilirubin (0.0-1.0) mg/dL Direct Bilirubin (0.0-0.5) mg/dL AST (5-37) U/L ALT (0-40) U/L Alkaline Phosphatase (39-117) U/L Total Protein (6.5-8.0) g/dL Albumin (3.5-5.0) g/dL Urine Color YELLOW Urine Appearance CLEAR Urine pH 6.0 (5.0-8.0) Ur Specific [place] 1.010 (1.005-1.025) Urine Protein TRACE (NEG-TRACE) MG/DL Urine Glucose (UA) NEG (NEG) MG/DL Urine Ketones 15 (NEG) MG/DL Urine Blood TRACE (NEG) Urine Nitrite NEG (NEG) Ur Leukocyte Esterase NEG (NEG) Urine RBC 1-4 (0) /HPF Urine WBC 0 (0-4) /HPF Ur Squamous Epith Cells NONE /LPF Urine Bacteria NONE /LPF Salicylates (15-30) mg/dL Urine Opiates Screen Not Detected (Not Detect) Urine Fentanyl Screen Not Detected (Not Detect) Acetaminophen (<30) mcg/mL Ur Barbiturates Screen Not Detected (Not Detect) Ur Phencyclidine Scrn Not Detected (Not Detect) Ur Amphetamines Screen Not Detected (Not Detect) U Benzodiazepines Scrn Not Detected (Not Detect) Urine Cocaine Screen Not Detected (Not Detect) U Marijuana (THC) Screen Not Detected (Not Detect) Ethyl Alcohol mg/dL COVID-19 ([facility]) Negative (Negative) COVID-19 Clin Com See Note 05/09/21 05/09/21 05/09/21 Range/Units 17:06 17:06 17:06 WBC 6.7 (4.8-10.8) X10*3/uL RBC 4.80 (4.60-5.80) X10*6/uL Hgb 13.5 L (14.0-18.0) g/dl Hct 39.7 L (42-52) % MCV 82.7 (80-98) fL MCH 28.1 (27.0-33.0) pg MCHC 34.0 (31.0-36.0) g/dl RDW 13.2 (11.0-16.0) % Plt Count 309 D (160-400) X10*3/uL MPV 9.8 (9.4-12.4) fL Immature Gran % (Auto) 0.0 (0.0-0.4) % Neut % (Auto) 38.6 L (45-73) % Lymph % (Auto) 50.4 H (20-40) % [place] % (Auto) 9.4 (2-11) % Eos % (Auto) 0.0 (0-4) % Baso % (Auto) 1.6 (0-2) % Lymph # (Auto) 3.4 (1.2-4.9) X10*3/uL [place] # (Auto) 0.6 (0.1-1.2) X10*3/uL Eos # (Auto) 0.0 (0.0-0.4) X10*3/uL Baso # (Auto) 0.1 (0.0-0.2) X10*3/uL Abs Immat Gran (auto) 0.00 (0.00-0.03) X10*3/uL Absolute Neuts (auto) 2.6 (2.0-8.3) X10*3/uL Absolute Nucleated RBC 0.000 (0.0-0.012) X10*3/uL Nucleated RBC % (auto) 0.0 (0.0-0.2) /100WBC Sodium 141 (135-145) mmol/L Potassium 3.8 (3.3-5.1) mmol/L Chloride 97 (96-108) mmol/L Carbon Dioxide 26 (22-29) mmol/L Anion Gap 22 H (12-20) BUN 7 L (9-16) mg/dL Creatinine 0.78 (0.5-1.4) mg/dL Estim Creat Clear Calc 151.0 Estimated GFR > 60 Random Glucose 132 H D (60-115) mg/dL Calcium 9.0 D (8.4-10.2) mg/dL Total Bilirubin 0.3 (0.0-1.0) mg/dL Direct Bilirubin 0.2 (0.0-0.5) mg/dL AST 84 H (5-37) U/L ALT 99 H (0-40) U/L Alkaline Phosphatase 82 D (39-117) U/L Total Protein 7.5 (6.5-8.0) g/dL Albumin 4.6 (3.5-5.0) g/dL Urine Color Urine Appearance Urine pH (5.0-8.0) Ur Specific [place] (1.005-1.025) Urine Protein (NEG-TRACE) MG/DL Urine Glucose (UA) (NEG) MG/DL Urine Ketones (NEG) MG/DL Urine Blood (NEG) Urine Nitrite (NEG) Ur Leukocyte Esterase (NEG) Urine RBC (0) /HPF Urine WBC (0-4) /HPF Ur Squamous Epith Cells /LPF Urine Bacteria /LPF Salicylates < 5.0 L (15-30) mg/dL Urine Opiates Screen (Not Detect) Urine Fentanyl Screen (Not Detect) Acetaminophen < 1 (<30) mcg/mL Ur Barbiturates Screen (Not Detect) Ur Phencyclidine Scrn (Not Detect) Ur Amphetamines Screen (Not Detect) U Benzodiazepines Scrn (Not Detect) Urine Cocaine Screen (Not Detect) U Marijuana (THC) Screen (Not Detect) Ethyl Alcohol 239 mg/dL COVID-19 ([facility]) (Negative) COVID-19 Clin Com <Surekha Shabazz NP - Last Filed: 05/09/21 16:35> Lab Results 05/09/21 05/09/21 05/09/21 Range/Units 16:50 16:50 16:50 WBC (4.8-10.8) X10*3/uL RBC (4.60-5.80) X10*6/uL Hgb (14.0-18.0) g/dl Hct (42-52) % MCV (80-98) fL MCH (27.0-33.0) pg MCHC (31.0-36.0) g/dl RDW (11.0-16.0) % Plt Count (160-400) X10*3/uL MPV (9.4-12.4) fL Immature Gran % (Auto) (0.0-0.4) % Neut % (Auto) (45-73) % Lymph % (Auto) (20-40) % [place] % (Auto) (2-11) % Eos % (Auto) (0-4) % Baso % (Auto) (0-2) % Lymph # (Auto) (1.2-4.9) X10*3/uL [place] # (Auto) (0.1-1.2) X10*3/uL Eos # (Auto) (0.0-0.4) X10*3/uL Baso # (Auto) (0.0-0.2) X10*3/uL Abs Immat Gran (auto) (0.00-0.03) X10*3/uL Absolute Neuts (auto) (2.0-8.3) X10*3/uL Absolute Nucleated RBC (0.0-0.012) X10*3/uL Nucleated RBC % (auto) (0.0-0.2) /100WBC Sodium (135-145) mmol/L Potassium (3.3-5.1) mmol/L Chloride (96-108) mmol/L Carbon Dioxide (22-29) mmol/L Anion Gap (12-20) BUN (9-16) mg/dL Creatinine (0.5-1.4) mg/dL Estim Creat Clear Calc Estimated GFR Random Glucose (60-115) mg/dL Calcium (8.4-10.2) mg/dL Total Bilirubin (0.0-1.0) mg/dL Direct Bilirubin (0.0-0.5) mg/dL AST (5-37) U/L ALT (0-40) U/L Alkaline Phosphatase (39-117) U/L Total Protein (6.5-8.0) g/dL Albumin (3.5-5.0) g/dL Urine Color YELLOW Urine Appearance CLEAR Urine pH 6.0 (5.0-8.0) Ur Specific [place] 1.010 (1.005-1.025) Urine Protein TRACE (NEG-TRACE) MG/DL Urine Glucose (UA) NEG (NEG) MG/DL Urine Ketones 15 (NEG) MG/DL Urine Blood TRACE (NEG) Urine Nitrite NEG (NEG) Ur Leukocyte Esterase NEG (NEG) Urine RBC 1-4 (0) /HPF Urine WBC 0 (0-4) /HPF Ur Squamous Epith Cells NONE /LPF Urine Bacteria NONE /LPF Salicylates (15-30) mg/dL Urine Opiates Screen Not Detected (Not Detect) Urine Fentanyl Screen Not Detected (Not Detect) Acetaminophen (<30) mcg/mL Ur Barbiturates Screen Not Detected (Not Detect) Ur Phencyclidine Scrn Not Detected (Not Detect) Ur Amphetamines Screen Not Detected (Not Detect) U Benzodiazepines Scrn Not Detected (Not Detect) Urine Cocaine Screen Not Detected (Not Detect) U Marijuana (THC) Screen Not Detected (Not Detect) Ethyl Alcohol mg/dL COVID-19 ([facility]) Negative (Negative) COVID-19 Clin Com See Note 05/09/21 05/09/21 05/09/21 Range/Units 17:06 17:06 17:06 WBC 6.7 (4.8-10.8) X10*3/uL RBC 4.80 (4.60-5.80) X10*6/uL Hgb 13.5 L (14.0-18.0) g/dl Hct 39.7 L (42-52) % MCV 82.7 (80-98) fL MCH 28.1 (27.0-33.0) pg MCHC 34.0 (31.0-36.0) g/dl RDW 13.2 (11.0-16.0) % Plt Count 309 D (160-400) X10*3/uL MPV 9.8 (9.4-12.4) fL Immature Gran % (Auto) 0.0 (0.0-0.4) % Neut % (Auto) 38.6 L (45-73) % Lymph % (Auto) 50.4 H (20-40) % [place] % (Auto) 9.4 (2-11) % Eos % (Auto) 0.0 (0-4) % Baso % (Auto) 1.6 (0-2) % Lymph # (Auto) 3.4 (1.2-4.9) X10*3/uL [place] # (Auto) 0.6 (0.1-1.2) X10*3/uL Eos # (Auto) 0.0 (0.0-0.4) X10*3/uL Baso # (Auto) 0.1 (0.0-0.2) X10*3/uL Abs Immat Gran (auto) 0.00 (0.00-0.03) X10*3/uL Absolute Neuts (auto) 2.6 (2.0-8.3) X10*3/uL Absolute Nucleated RBC 0.000 (0.0-0.012) X10*3/uL Nucleated RBC % (auto) 0.0 (0.0-0.2) /100WBC Sodium 141 (135-145) mmol/L Potassium 3.8 (3.3-5.1) mmol/L Chloride 97 (96-108) mmol/L Carbon Dioxide 26 (22-29) mmol/L Anion Gap 22 H (12-20) BUN 7 L (9-16) mg/dL Creatinine 0.78 (0.5-1.4) mg/dL Estim Creat Clear Calc 151.0 Estimated GFR > 60 Random Glucose 132 H D (60-115) mg/dL Calcium 9.0 D (8.4-10.2) mg/dL Total Bilirubin 0.3 (0.0-1.0) mg/dL Direct Bilirubin 0.2 (0.0-0.5) mg/dL AST 84 H (5-37) U/L ALT 99 H (0-40) U/L Alkaline Phosphatase 82 D (39-117) U/L Total Protein 7.5 (6.5-8.0) g/dL Albumin 4.6 (3.5-5.0) g/dL Urine Color Urine Appearance Urine pH (5.0-8.0) Ur Specific [place] (1.005-1.025) Urine Protein (NEG-TRACE) MG/DL Urine Glucose (UA) (NEG) MG/DL Urine Ketones (NEG) MG/DL Urine Blood (NEG) Urine Nitrite (NEG) Ur Leukocyte Esterase (NEG) Urine RBC (0) /HPF Urine WBC (0-4) /HPF Ur Squamous Epith Cells /LPF Urine Bacteria /LPF Salicylates < 5.0 L (15-30) mg/dL Urine Opiates Screen (Not Detect) Urine Fentanyl Screen (Not Detect) Acetaminophen < 1 (<30) mcg/mL Ur Barbiturates Screen (Not Detect) Ur Phencyclidine Scrn (Not Detect) Ur Amphetamines Screen (Not Detect) U Benzodiazepines Scrn (Not Detect) Urine Cocaine Screen (Not Detect) U Marijuana (THC) Screen (Not Detect) Ethyl Alcohol 239 mg/dL COVID-19 ([facility]) (Negative) COVID-19 Clin Com <Grace Painter MD - Last Filed: 05/10/21 07:45> Discharge Plan Discharge Clinical Impression: Alcohol abuse Alcoholic intoxication Qualifiers: Complication of substance-induced condition: uncomplicated Qualified Code(s): F10.920 - Alcohol use, unspecified with intoxication, uncomplicated <Surekha Shabazz NP - Last Filed: 05/09/21 16:35> Patient Disposition: Home, Self-Care <Surekha Shabazz NP - Last Filed: 05/09/21 16:35> Instructions: Alcohol Intoxication (ED), Abuse of Alcohol (ED) <Surekha Shabazz NP - Last Filed: 05/09/21 16:35> Additional Instructions: return to ED for any worsening symptoms or concerns please go to the living room <Surekha Shabazz NP - Last Filed: 05/09/21 16:35> Prescriptions: No Action hydroxyzine HCl 25 mg tablet 1 - 2 tab PO BID PRN (Reason: anxiety) RF: 0 bupropion HCl 200 mg tablet sustained-release 12 hr 1 tab PO BID RF: 0 buprenorphine-naloxone [Suboxone] 8-2 mg film 1 strip sublingual BID RF: 0 <Surekha Shabazz NP - Last Filed: 05/09/21 16:35> Interventions: ED Discharge Assessment Last Done: 05/10/21 07:39 <Surekha Shabazz NP - Last Filed: 05/09/21 16:35> Discharge Date/Time: 05/10/21 07:40 <Surekha Shabazz NP - Last Filed: 05/09/21 16:35>
[2021-05-09 16:32] VITALS: BP 148/96; PULSE 115; PULSE 125; RESP 18; TEMP 36.9; O2SAT 99; BMI 32.5
[2021-05-09] MEDS: Ondansetron ODT 4 MG TAB.RAPDIS TRANSLINGU (16:41)
--- NOTE | 2021-05-09 16:51 | ED.PSYCH ---
HPI - Psych General Chief Complaint: ETOH/Substance Use Stated Complaint: ingested hand senatizer Time Seen by Provider: 05/09/21 16:30 Source: patient Mode of arrival: ambulatory Limitations: no limitations History of Present Illness HPI Narrative: 35-year-old male presents via EMS for substance abuse. States that he drank a gal of [employer] over the past 4 days, last drink this morning, because he is withdrawing from Suboxone. MD complaint: feels depressed, substance abuse and alcohol abuse Onset (ago): unknown Duration: constant History of same: Yes Exacerbating factors: alcohol and drug use Context: recent alcohol abuse Associated psychiatric symptoms: depression and suicidal ideation Associated symptoms: denies other symptoms Treatments prior to arrival: none Related Data Home Medications Medication Instructions Recorded Confirmed buprenorphine 8 mg-naloxone 2 mg 1 strip SUBLINGUAL BID 05/09/21 05/09/21 sublingual film (Suboxone) bupropion HCl 200 mg tablet,12 hr 1 tab PO BID 05/09/21 05/09/21 sustained-release hydroxyzine HCl 25 mg tablet 1 - 2 tab PO BID PRN 05/09/21 05/09/21 Allergies Allergy/AdvReac Type Severity Reaction Status Date / Time No Known Allergies Allergy Verified 08/10/20 16:25 Review of Systems Review of Systems: Constitutional: No Fever, No Chills ENT/Mouth: No sore throat, No Rhinorrhea Eyes: No Eye Pain, No Swelling, No Redness Cardiovascular: No Chest Pain, No SOB Respiratory: No Cough, No Sputum Gastrointestinal: No Nausea, No Vomiting, No Diarrhea, No abdominal Pain Genitourinary: No Dysuria, No Hematuria Musculoskeletal: No joint pain, No Myalgias, No Joint Swelling Skin: No Skin Lesions, No rash Neuro: No Weakness, No Numbness, No Loss of Consciousness, No Dizziness, No Headache Psych: No Anxiety, No Depression, No SI/HI/AH/VH Heme/Lymph: No Bruising, No Bleeding,No Lymphadenopathy Endocrine: No Polyuria, No Polydipsia PMFSH Past Medical History Attestation statement: The following information was validated with the patient. Source: old records reviewed Medical History Asthma Substance abuse Social History Social History Alcohol intake: current Alcohol intake frequency: 3 or more drinks per day Alcohol type: hard liquor Substance Use Type: Crack/Cocaine and Heroin Advance Directives: No Advance Directives Information Provided: Yes Physical Exam Vital Signs: Vital Signs: Last Vital Signs Temp 98.0 F 05/09/21 23:55 Pulse 96 05/09/21 23:55 Resp 17 05/09/21 23:55 BP 148/84 H 05/09/21 23:55 Pulse Ox 97 05/09/21 23:55 Body Mass Index 32.5 Appearance: Alert. Oriented X3. Moderate emotional distress. Eyes: Pupils equal, round and reactive to light. Sclera nonicteric. No nystagmus. ENT: Pharynx normal. Moist mucous membranes. Neck: Normal inspection. Neck supple. CVS: Normal heart rate and rhythm. Pulses normal. Respiratory: No respiratory distress. Breath sounds normal. Abdomen: Soft and nontender. Skin: Skin warm and dry. Normal skin color. Normal skin turgor. Extremities: No lower extremity edema. Gait well balanced well coordinated. Neuro: No motor deficit. No sensory deficit. Cranial nerves 2-12 intact. Course Course Course Narrative: 35-year-old male presents with alcohol abuse. States that he drank a gal of hand [employer] over the past 4 days. Also reports that he needs Suboxone. He does not report any suicidal or homicidal ideation. Has been admitted to the hospital in the past for drinking hand [employer]. Plan of care is for crisis consult, section 12 and labs. RN will call out to poison Control. Physician observation started at this time. MDM - Psych Differential Diagnosis Differential diagnosis: Likely acute psychosis, suicidal ideation, depression, drug-induced psychotic disorder, acute anxiety, substance abuse and mood disorder Medical Records Attestation: I reviewed the patient's medical records. Lab Data Attestation: I reviewed the patient's lab results. Result diagrams: 05/09/21 17:06 05/09/21 17:06 Labs: Lab Results 05/09/21 05/09/21 05/09/21 Range/Units 16:50 16:50 16:50 WBC (4.8-10.8) X10*3/uL RBC (4.60-5.80) X10*6/uL Hgb (14.0-18.0) g/dl Hct (42-52) % MCV (80-98) fL MCH (27.0-33.0) pg MCHC (31.0-36.0) g/dl RDW (11.0-16.0) % Plt Count (160-400) X10*3/uL MPV (9.4-12.4) fL Immature Gran % (Auto) (0.0-0.4) % Neut % (Auto) (45-73) % Lymph % (Auto) (20-40) % [place] % (Auto) (2-11) % Eos % (Auto) (0-4) % Baso % (Auto) (0-2) % Lymph # (Auto) (1.2-4.9) X10*3/uL [place] # (Auto) (0.1-1.2) X10*3/uL Eos # (Auto) (0.0-0.4) X10*3/uL Baso # (Auto) (0.0-0.2) X10*3/uL Abs Immat Gran (auto) (0.00-0.03) X10*3/uL Absolute Neuts (auto) (2.0-8.3) X10*3/uL Absolute Nucleated RBC (0.0-0.012) X10*3/uL Nucleated RBC % (auto) (0.0-0.2) /100WBC Sodium (135-145) mmol/L Potassium (3.3-5.1) mmol/L Chloride (96-108) mmol/L Carbon Dioxide (22-29) mmol/L Anion Gap (12-20) BUN (9-16) mg/dL Creatinine (0.5-1.4) mg/dL Estim Creat Clear Calc Estimated GFR Random Glucose (60-115) mg/dL Calcium (8.4-10.2) mg/dL Total Bilirubin (0.0-1.0) mg/dL Direct Bilirubin (0.0-0.5) mg/dL AST (5-37) U/L ALT (0-40) U/L Alkaline Phosphatase (39-117) U/L Total Protein (6.5-8.0) g/dL Albumin (3.5-5.0) g/dL Urine Color YELLOW Urine Appearance CLEAR Urine pH 6.0 (5.0-8.0) Ur Specific [place] 1.010 (1.005-1.025) Urine Protein TRACE (NEG-TRACE) MG/DL Urine Glucose (UA) NEG (NEG) MG/DL Urine Ketones 15 (NEG) MG/DL Urine Blood TRACE (NEG) Urine Nitrite NEG (NEG) Ur Leukocyte Esterase NEG (NEG) Urine RBC 1-4 (0) /HPF Urine WBC 0 (0-4) /HPF Ur Squamous Epith Cells NONE /LPF Urine Bacteria NONE /LPF Salicylates (15-30) mg/dL Urine Opiates Screen Not Detected (Not Detect) Urine Fentanyl Screen Not Detected (Not Detect) Acetaminophen (<30) mcg/mL Ur Barbiturates Screen Not Detected (Not Detect) Ur Phencyclidine Scrn Not Detected (Not Detect) Ur Amphetamines Screen Not Detected (Not Detect) U Benzodiazepines Scrn Not Detected (Not Detect) Urine Cocaine Screen Not Detected (Not Detect) U Marijuana (THC) Screen Not Detected (Not Detect) Ethyl Alcohol mg/dL COVID-19 ([facility]) Negative (Negative) COVID-19 Clin Com See Note 05/09/21 05/09/21 05/09/21 Range/Units 17:06 17:06 17:06 WBC 6.7 (4.8-10.8) X10*3/uL RBC 4.80 (4.60-5.80) X10*6/uL Hgb 13.5 L (14.0-18.0) g/dl Hct 39.7 L (42-52) % MCV 82.7 (80-98) fL MCH 28.1 (27.0-33.0) pg MCHC 34.0 (31.0-36.0) g/dl RDW 13.2 (11.0-16.0) % Plt Count 309 D (160-400) X10*3/uL MPV 9.8 (9.4-12.4) fL Immature Gran % (Auto) 0.0 (0.0-0.4) % Neut % (Auto) 38.6 L (45-73) % Lymph % (Auto) 50.4 H (20-40) % [place] % (Auto) 9.4 (2-11) % Eos % (Auto) 0.0 (0-4) % Baso % (Auto) 1.6 (0-2) % Lymph # (Auto) 3.4 (1.2-4.9) X10*3/uL [place] # (Auto) 0.6 (0.1-1.2) X10*3/uL Eos # (Auto) 0.0 (0.0-0.4) X10*3/uL Baso # (Auto) 0.1 (0.0-0.2) X10*3/uL Abs Immat Gran (auto) 0.00 (0.00-0.03) X10*3/uL Absolute Neuts (auto) 2.6 (2.0-8.3) X10*3/uL Absolute Nucleated RBC 0.000 (0.0-0.012) X10*3/uL Nucleated RBC % (auto) 0.0 (0.0-0.2) /100WBC Sodium 141 (135-145) mmol/L Potassium 3.8 (3.3-5.1) mmol/L Chloride 97 (96-108) mmol/L Carbon Dioxide 26 (22-29) mmol/L Anion Gap 22 H (12-20) BUN 7 L (9-16) mg/dL Creatinine 0.78 (0.5-1.4) mg/dL Estim Creat Clear Calc 151.0 Estimated GFR > 60 Random Glucose 132 H D (60-115) mg/dL Calcium 9.0 D (8.4-10.2) mg/dL Total Bilirubin 0.3 (0.0-1.0) mg/dL Direct Bilirubin 0.2 (0.0-0.5) mg/dL AST 84 H (5-37) U/L ALT 99 H (0-40) U/L Alkaline Phosphatase 82 D (39-117) U/L Total Protein 7.5 (6.5-8.0) g/dL Albumin 4.6 (3.5-5.0) g/dL Urine Color Urine Appearance Urine pH (5.0-8.0) Ur Specific [place] (1.005-1.025) Urine Protein (NEG-TRACE) MG/DL Urine Glucose (UA) (NEG) MG/DL Urine Ketones (NEG) MG/DL Urine Blood (NEG) Urine Nitrite (NEG) Ur Leukocyte Esterase (NEG) Urine RBC (0) /HPF Urine WBC (0-4) /HPF Ur Squamous Epith Cells /LPF Urine Bacteria /LPF Salicylates < 5.0 L (15-30) mg/dL Urine Opiates Screen (Not Detect) Urine Fentanyl Screen (Not Detect) Acetaminophen < 1 (<30) mcg/mL Ur Barbiturates Screen (Not Detect) Ur Phencyclidine Scrn (Not Detect) Ur Amphetamines Screen (Not Detect) U Benzodiazepines Scrn (Not Detect) Urine Cocaine Screen (Not Detect) U Marijuana (THC) Screen (Not Detect) Ethyl Alcohol 239 mg/dL COVID-19 ([facility]) (Negative) COVID-19 Clin Com ECG Data Attestation: I personally reviewed and interpreted this ECG as follows: ECG interpretation date: 05/09/21 ECG interpretation time: 17:30 Prior ECG tracings: not available for review Interpretation: Ventricular rate 97 beats per minute, WI 156, QRS 86, QTC 374, QTC 474, normal sinus rhythm, normal EKG, prior EKGs unavailable secondary to system 130 error Discharge Plan Discharge Clinical Impression: Alcohol abuse Alcoholic intoxication Qualifiers: Complication of substance-induced condition: uncomplicated Qualified Code(s): F10.920 - Alcohol use, unspecified with intoxication, uncomplicated Prescriptions: No Action hydroxyzine HCl 25 mg tablet 1 - 2 tab PO BID PRN (Reason: anxiety) RF: 0 bupropion HCl 200 mg tablet sustained-release 12 hr 1 tab PO BID RF: 0 buprenorphine-naloxone [Suboxone] 8-2 mg film 1 strip sublingual BID RF: 0
--- NOTE | 2021-05-09 16:58 | PC.NURSE ---
pauly tells me client was released off sec 35 52 days ago
--- NOTE | 2021-05-09 16:58 | PC.NURSE ---
provider instructed me to call poison control, on hold now
[2021-05-09 17:10] LABS: MANUAL DIFF FLAG NO
[2021-05-09 17:12] LABS: Basophils Absolute Auto 0.1 X10*3/uL (0.0-0.2); Basophils Percent Auto 1.6 % (0-2); Hematocrit 39.7 % (42-52); Hemoglobin 13.5 g/dl (14.0-18.0); Lymphocytes Absolute Auto 3.4 X10*3/uL (1.2-4.9); Lymphocytes Percent Auto 50.4 % (20-40); Mean Corpuscular Hemoglobin 28.1 pg (27.0-33.0); Mean Corpuscular Volume 82.7 fL (80-98); Mean Platelet Volume 9.8 fL (9.4-12.4); Monocytes Absolute Auto 0.6 X10*3/uL (0.1-1.2); Monocytes Percent Auto 9.4 % (2-11); Neutrophils Absolute Auto 2.6 X10*3/uL (2.0-8.3); Neutrophils Percent Auto 38.6 % (45-73); Platelet Count 309 X10*3/uL (160-400); Red Cell Distribution Width 13.2 % (11.0-16.0); White Blood Count 6.7 X10*3/uL (4.8-10.8)
[2021-05-09 17:13] LABS: Amphetamine Screen Urine Not Detected (Not Detect); Barbiturates, Urine Not Detected (Not Detect); Benzodiazepines Screen Urine Not Detected (Not Detect); COVID-19 Test Negative (Negative); Cannabinoid Screen Urine Not Detected (Not Detect); Cocaine Screen Urine Not Detected (Not Detect); Fentanyl, urine Not Detected (Not Detect); Opiate Screen Urine Not Detected (Not Detect); Phencyclidine Screen Urine Not Detected (Not Detect)
[2021-05-09 17:24] LABS: Ethanol 239 mg/dL
[2021-05-09 17:27] LABS: Anion Gap 22 (12-20); Blood Urea Nitrogen 7 mg/dL (9-16); Carbon Dioxide 26 mmol/L (22-29); Chloride 97 mmol/L (96-108); Estimated Glomerular Filt Rate > 60; Glucose Random 132 mg/dL (60-115); Potassium 3.8 mmol/L (3.3-5.1); Sodium 141 mmol/L (135-145)
--- NOTE | 2021-05-09 18:00 | PC.NURSE ---
called back poison control to report information and they advised to add on labs that were absent
[2021-05-09 18:13] LABS: Appearance Urine CLEAR; Color Urine YELLOW; Glucose Urine UA NEG (NEG); Leukocyte Esterase Urine NEG (NEG); Nitrite Urine NEG (NEG); Urine Blood TRACE (NEG); Urine Ketones 15 MG/DL (NEG); Urine Protein TRACE MG/DL (NEG-TRACE)
[2021-05-09 18:21] LABS: Acetaminophen LAB < 1 mcg/mL (<30)
[2021-05-09 18:22] LABS: Alanine Aminotransferase 99 U/L (0-40); Albumin Level 4.6 g/dL (3.5-5.0); Alkaline Phosphatase 82 U/L (39-117); Aspartate Amino Transferase 84 U/L (5-37); Bilirubin Direct 0.2 mg/dL (0.0-0.5); Bilirubin Total 0.3 mg/dL (0.0-1.0); Salicylate < 5.0 mg/dL (15-30); Total Protein 7.5 g/dL (6.5-8.0)
[2021-05-09 18:30] LABS: WBC Urine 0 /HPF (0-4)
--- NOTE | 2021-05-09 19:12 | MHC.RECOVSUP ---
? Reason for consult:Recovery Support o?? Current location ?[facility] o?? Identified substance use concern ?Alcohol/hand oral surgery assistant ?? Withdrawal ?? Support ? Intervention: o?? MAT started or to be started o?? Community resources provided o?? Harm reduction discussion ? Plan: o?? Follow up tomorrow? o?? Patient awaiting crisis evaluation o?? Patient to follow up with [facility] after discharge ? Additional information: ?Pt.;.came in with alcohol withdraws He states that he was in a tss program in [place] and decided to take some hand oral surgery assistant and drank it.Pt. state that he can go back to program just waiting for approval of his counselor. Also Pt. is on suboxone 8mg.
[2021-05-09] MEDS: Buprenorphine/Naloxone 8/2 mg FILM 1 FILM SUBLINGUAL ×2 (19:22→21:05)
[2021-05-09] MEDS: LORazepam 1 MG TABLET 2 MG PO (23:24)
[2021-05-09 23:55] VITALS: BP 148/84; PULSE 96; RESP 17; TEMP 36.7; O2SAT 97
[2021-05-10] MEDS: LORazepam 1 MG TABLET 2 MG PO (04:03)
--- NOTE | 2021-05-10 06:30 | PC.NURSE ---
Patient slept through the night, no distress observed/reported, patient is asymptomatic of withdrawal at this time, patient received Ativan 2m x 2 for withdrawal, patient is over-hydrating and then vomit, patient educated to drink water in moderation, patient got seen by N, disposition d/c to living room, and go to detox if needed., patient not happy with disposition, poison control updated and cleared, will continue to monitor.
--- NOTE | 2021-05-10 07:04 | PC.NURSE ---
patient appears to remain asleep at present respirations are even and unlabored, patient appears in no distress
[2021-05-10] MEDS: Ondansetron ODT 4 MG TAB.RAPDIS TRANSLINGU (07:28)
== END 2021-05-10 07:40 | disposition home or self-care (01) ==
PROVIDERS: Nurse Practitioner Family; Emergency Provider Student in an Organized Health Care Education/Training Program; PCP Nurse Practitioner Family
DX: F33.1 Major depressive disorder, recurrent, moderate (principal); F10.920 Alcohol use, unspecified with intoxication, uncomplicated; R45.851 Suicidal ideations; Y90.7 Blood alcohol level of 200-239 mg/100 ml; F11.90 Opioid use, unspecified, uncomplicated; F14.90 Cocaine use, unspecified, uncomplicated; Z79.899 Other long term (current) drug therapy; Z20.822 Contact with and (suspected) exposure to COVID-19
CPT/HCPCS: 36415; 80048; 80076; 80143; 80179; 80307; 81001; 82077; 85025; 87635; 93005; 99284